=== PATIENT | male | born 1980 | race Caucasian/White ===

== ENCOUNTER 2021-07-08 09:41 | Emergency (ER) | payer OTHER ==
[~2021-07-08] VITALS: Ht 185.4 cm; Wt 68.9 kg
[2021-07-08] MEDS ORDERED: ONDANSETRON PF 4 MG/2 ML VIAL. IVP ONE (10:45)
[2021-07-08] MEDS ORDERED: MORPHINE SULFATE 4 MG/ML INJ. IVP ONE (10:45)
[2021-07-08] MEDS ORDERED: IV NORMAL SALINE 1000ML BAG 1,000 ML IV ONE (10:45)
[2021-07-08 10:54] LABS: BASO % 1 % (0-3); EOS % 0 % (0-3); HEMATOCRIT 47.8 % (39.0-53.0); HEMOGLOBIN 16.8 g/dL (13.0-17.5); LYMPH # 0.6 x10^3/uL (1.0-4.8); LYMPH % 11 % (24-48); MEAN CORPUSCULAR HEMOGLOBIN 31 pg (25-35); MEAN CORPUSCULAR HGB CONC 35 g/dL (31-37); MEAN CORPUSCULAR VOLUME 88 fL (79-100); MONO % 18 % (0-9); NEUT # 4.1 x10^3/uL (1.8-7.7); NEUT % 70 % (31-73); PLATELET COUNT 287 x10^3/uL (140-400); RED CELL DISTRIBUTION WIDTH 12.7 % (11.5-14.5); WHITE BLOOD COUNT 5.8 x10^3/uL (4.0-11.0)
[2021-07-08 10:59] LABS: CALCIUM 9.7 mg/dL (8.5-10.1); CREATININE 1.3 mg/dL (0.7-1.3); GFR 61.8; POTASSIUM 3.2 mmol/L (3.5-5.1)
--- NOTE | 2021-07-08 11:01 | PHYS DOC ---
Past Medical History Past Surgical History: No Surgical History (CHANTEL SHER CUSTOMER ENGAGEMENT MANAGER) Smoking Status: Former Smoker Alcohol Use: None (CHANTEL SHER CUSTOMER ENGAGEMENT MANAGER) General Adult EDM: Chief Complaint: ABDOMINAL PAIN HPI: HPI: Patient is a 40 year old 40-year-old male patient presenting to the ED today from [facility] with two guards complaining of 7 out of 10 sharp intermittent right lower quadrant abdominal pain with nausea vomiting and diarrhea, symptoms began on Tuesday last week. Patient denies any hematemesis or melena. States his pain is worse when he is lying down. Denies any fever. He states he lost 30 pounds since Tuesday without trying. (CHANTEL SHER CUSTOMER ENGAGEMENT MANAGER) Review of Systems: Review of Systems: Constitutional: Denies fever or chills. [] Eyes: Denies change in visual acuity. [] HENT: Denies nasal congestion or sore throat. [] Respiratory: Denies cough or shortness of breath. [] Cardiovascular: Denies chest pain or edema. [] GI: Reports right lower quadrant abdominal pain with nausea vomiting and diarrhea, denies any hematemesis or melena : Denies dysuria. [] Musculoskeletal: Denies back pain or joint pain. [] Integument: Denies rash. [] Neurologic: Denies headache, focal weakness or sensory changes. [] Psychiatric: Denies depression or anxiety. [] (CHANTEL SHER CUSTOMER ENGAGEMENT MANAGER) Heart Score: C/O Chest Pain: N/A Risk Factors: Risk Factors: DM, Current or recent (<one month) smoker, HTN, HLP, family history of CAD, obesity. Risk Scores: Score 0 - 3: 2.5% MACE over next 6 weeks - Discharge Home Score 4 - 6: 20.3% MACE over next 6 weeks - Admit for Clinical Observation Score 7 - 10: 72.7% MACE over next 6 weeks - Early Invasive Strategies (CHANTEL SHER CUSTOMER ENGAGEMENT MANAGER) Current Medications: Current Medications Medications (Trade) Dose Ordered Sig/Magalys Start Time Stop Time Status Last Admin Dose Admin Morphine Sulfate (Morphine Sulfate) 4 mg 1X ONCE 07/08/21 10:45 07/08/21 10:46 DC 07/08/21 10:45 4 MG Ondansetron HCl (Zofran) 4 mg 1X ONCE 07/08/21 10:45 07/08/21 10:46 DC 07/08/21 10:49 4 MG Sodium Chloride 1,000 ml @ 1,000 mls/hr 1X ONCE 07/08/21 10:45 07/08/21 11:44 07/08/21 10:45 1,000 MLS/HR (CHANTEL SHER Brie CUSTOMER ENGAGEMENT MANAGER) Allergies: Allergies: Allergies Coded Allergies Type Severity Reaction Last Updated Verified No Known Drug Allergies 07/08/21 No (NIKKYCHANTEL Brie CUSTOMER ENGAGEMENT MANAGER) Physical Exam: PE: Constitutional: Thin appearing patient, no acute distress, non-toxic appearance. [] HENT: Normocephalic, atraumatic, bilateral external ears normal, oropharynx moist, no oral exudates, nose normal. [] Eyes: PERRLA, EOMI, conjunctiva normal, no discharge. [] Neck: Normal range of motion, no tenderness, supple, no stridor. [] Cardiovascular:Heart rate regular rhythm, no murmur [] Lungs & Thorax: Bilateral breath sounds clear to auscultation [] Abdomen: Flat abdomen. Bowel sounds normal, soft, mild tenderness on palpation of the right lower quadrant with negative psoas sign, negative obturator sign, negative Rovsing sign, no right upper quadrant abdominal pain, no masses, no pulsatile masses. [] Skin: Warm, dry, no erythema, no rash. [] Back: No tenderness, no CVA tenderness. [] Extremities: No tenderness, no cyanosis, no clubbing, ROM intact, no edema. [] Neurologic: Alert and oriented X 3, normal motor function, normal sensory function, no focal deficits noted. [] Psychologic: Affect normal, judgement normal, mood normal. [] (HEATHERILEANABernardaCHANTEL CUSTOMER ENGAGEMENT MANAGER) Current Patient Data: Vital Signs: Vital Signs Date Time Temp Pulse Resp B/P (MAP) Pulse Ox O2 Delivery O2 Flow Rate FiO2 07/08/21 10:51 82 121/85 (97) 98 07/08/21 09:55 98.0 18 Room Air 98.0 (CHANTEL SHER CUSTOMER ENGAGEMENT MANAGER) EKG: EKG: [] (CHANTEL SHER CUSTOMER ENGAGEMENT MANAGER) Radiology/Procedures: Radiology/Procedures: []PROCEDURE: CT ABD PELV W/ IV CONTRST ONLY PQRS Compliance Statement: One or more of the following individualized dose reduction techniques were utilized for this examination: 1. Automated exposure control 2. Adjustment of the mA and/or kV according to patient size 3. Use of iterative reconstruction technique CT abdomen/pelvis with contrast 07/08/2021 11:13 AM INDICATION: Right lower quadrant abdominal pain COMPARISON: None available TECHNIQUE: Multiple axial CT images of the abdomen and pelvis were obtained after the intravenous administration of nonionic contrast. Coronal and sagittal reformats are provided. FINDINGS: 3 mm solid noncalcified pulmonary nodule identified in the left lower lobe (series 2, image 7). Heart size within normal limits. 4.5 mm hypoattenuating lesion within the medial segment left hepatic lobe (series 2, image 25) is too small to characterize, however statistically favored represent a simple cyst or hemangioma. Spleen, adrenal glands, pancreas and gallbladder are normal in appearance. The kidneys enhance symmetrically. There is no suspicious renal mass. There is no hydronephrosis. There are no suspected calculi within the kidneys, ureters or urinary bladder. Simple cyst in the superior pole left kidney measures 6 mm. Simple cyst in inferior pole left kidney measures 9 mm. Small and large bowel are normal in caliber. There is no evidence for bowel obstruction. There are no pericolonic inflammatory changes. A normal, nondilated appendix is visualized without adjacent inflammatory changes. There may be mild wall thickening involving the terminal ileum without adjacent inflammation. The abdominal aorta is normal in course and caliber. There are no pathologically enlarged lymph nodes in the abdomen and pelvis. There is no abdominal free fluid. There is no free intraperitoneal air. Urinary bladder is within normal limits given degree of distention. Prostate and seminal vesicles are normal. No suspicious osseous abnormality is identified. Inferior endplate Schmorl's node identified at L4 without significant height loss. IMPRESSION: No acute abnormality identified within the abdomen and pelvis. Specifically, appendix is normal. There may be mild wall thickening of the terminal ileum without significant adjacent inflammation. Correlate with any signs and symptoms of chronic terminal ileitis. 3 mm solid noncalcified pulmonary nodule in the left lower lobe. Fleischner guidelines for incidentally detected pulmonary nodules suggests no routine foll ow-up for low risk patients and optional CT at 12 months for high risk patients with solid noncalcified pulmonary nodules less than 6 mm in size. 4.5 mm hypoattenuating lesion within the medial segment left hepatic lobe is too small to characterize. This finding is favored to represent a cyst or hemangioma in the absence of underlying malignancy. Electronically signed by: Darion Sharp MD (07/08/2021 11:42 AM) [id number] DICTATED and SIGNED BY: DARION SHARP MD DATE: 07/08/21 [id number] (CHANTEL SHER APRN) Course & Med Decision Making: Course & Med Decision Making Pertinent Labs and Imaging studies reviewed. (See chart for details) [] This is a 40-year-old male patient presented to the ED today from [facility] complaining of right lower quadrant abdominal pain with nausea vomiting and diarrhea as well as 30 pound weight loss since Tuesday UA negative for infection, CBC with a normal WBC, normal hemoglobin and hematocrit, CMP with potassium of 3.2, patient was given oral potassium replacement. CT of the abdomen and pelvic was negative for appendicitis, noted for possible mild wall thickening of the terminal ileum without significant adjacent inflammation. Correlate with any signs and symptoms of chronic terminal ileitis. Patient denies chronic ileitis though states he tends to have diarrhea a month. Also noted for pulmonary nodule but no risk factors on this patient no follow-up is needed. Negative rapid Covid test Discharged to care home. Instructed to maintain good hand hygiene, push fluids. Follow-up with GI in 1 week if symptoms persist (CHANTEL SHER APRN) Course & Med Decision Making Laboratory Tests Test 07/08/21 10:03 07/08/21 10:09 07/08/21 10:53 Urine Collection Type Unknown Urine Color Radha Urine Clarity Clear Urine pH 6.0 (<5.0-8.0) Urine Specific [place] 1.025 (1.000-1.030) Urine Protein 30 mg/dL (NEG-TRACE) Urine Glucose (UA) Negative mg/dL (NEG) Urine Ketones (Stick) 15 mg/dL (NEG) Urine Blood Small (NEG) Urine Nitrite Negative (NEG) Urine Bilirubin Negative (NEG) Urine Urobilinogen Dipstick 0.2 mg/dL (0.2 mg/dL) Urine Leukocyte Esterase Negative (NEG) Urine RBC Rare /HPF (0-2) Urine WBC Occ /HPF (0-4) Urine Squamous Epithelial Cells Occ /LPF Urine Bacteria 0 /HPF (0-FEW) Urine Hyaline Casts Occasional /HPF Urine Mucus Slight /LPF Urine Opiates Screen Neg (NEG) Urine Methadone Screen Neg (NEG) Urine Barbiturates Neg (NEG) Urine Phencyclidine Screen Neg (NEG) Urine Amphetamine/Methamphetamine Neg (NEG) Urine Benzodiazepines Screen Neg (NEG) Urine Cocaine Screen Neg (NEG) Urine Cannabinoids Screen Neg (NEG) Urine Ethyl Alcohol Neg (NEG) White Blood Count 5.8 x10^3/uL (4.0-11.0) Red Blood Count 5.40 x10^6/uL (4.30-5.70) Hemoglobin 16.8 g/dL (13.0-17.5) Hematocrit 47.8 % (39.0-53.0) Mean Corpuscular Volume 88 fL (79-100) Mean Corpuscular Hemoglobin 31 pg (25-35) Mean Corpuscular Hemoglobin Concent 35 g/dL (31-37) Red Cell Distribution Width 12.7 % (11.5-14.5) Platelet Count 287 x10^3/uL (140-400) Neutrophils (%) (Auto) 70 % (31-73) Lymphocytes (%) (Auto) 11 % (24-48) Monocytes (%) (Auto) 18 % (0-9) Eosinophils (%) (Auto) 0 % (0-3) Basophils (%) (Auto) 1 % (0-3) Neutrophils # (Auto) 4.1 x10^3/uL (1.8-7.7) Lymphocytes # (Auto) 0.6 x10^3/uL (1.0-4.8) Monocytes # (Auto) 1.0 x10^3/uL (0.0-1.1) Eosinophils # (Auto) 0.0 x10^3/uL (0.0-0.7) Basophils # (Auto) 0.0 x10^3/uL (0.0-0.2) Sodium Level 140 mmol/L (136-145) Potassium Level 3.2 mmol/L (3.5-5.1) Chloride Level 99 mmol/L (98-107) Carbon Dioxide Level 29 mmol/L (21-32) Anion Gap 12 (6-14) Blood Urea Nitrogen 17 mg/dL (8-26) Creatinine 1.3 mg/dL (0.7-1.3) Estimated GFR (Cockcroft-Gault) 61.8 BUN/Creatinine Ratio 13 (6-20) Glucose Level 111 mg/dL (70-99) Calcium Level 9.7 mg/dL (8.5-10.1) Total Bilirubin 0.6 mg/dL (0.2-1.0) Aspartate Amino Transf (AST/SGOT) 19 U/L (15-37) Alanine Aminotransferase (ALT/SGPT) 17 U/L (16-63) Alkaline Phosphatase 59 U/L (46-116) Total Protein 8.2 g/dL (6.4-8.2) Albumin 4.1 g/dL (3.4-5.0) Albumin/Globulin Ratio 1.0 (1.0-1.7) Lipase 166 U/L (73-393) Ethyl Alcohol Level < 10 mg/dL (0-10) SARS-CoV-2 Antigen (Rapid) Negative (NEGATIVE) I have reviewed and was available for consultation in the emergency department for this patient that was seen by midlevel provider. Agree with plan above. Rajni Olmedo DO (RAJNI OLMEDO DO) Oleksandr Disclaimer: Oleksandr Disclaimer: This electronic medical record was generated, in whole or in part, using a voice recognition dictation system. (CHANTEL SHER APRN) Departure Departure Impression: Primary Impression: Ileitis, terminal Qualified Codes: K50.019 - Crohn's disease of small intestine with unspecified complications Additional Impression: Hypokalemia Disposition: HOME / SELF CARE / HOMELESS Condition: STABLE Referrals: DORCAS MOONEY MD follow up in one week Patient Instructions: Viral Gastroenteritis, [id number] Additional Instructions: You were evaluated in the emergency room and noted to have a possible viral infection. Your WBCs were normal, your hemoglobin and hematocrit was normal. Your CT of the abdomen and pelvic was noted for possible chronic ileitis. We encourage you to push fluids. Maintain good hand hygiene. Follow-up with your own doctor in 1 to [address]. Your potassium was 3.2, this is slightly low. Increase your dietary potassium intake. CHANTEL SHER APRN Jul 08, 2021 11:01 RAJNI OLMEDO DO Jul 08, 2021 15:24
[2021-07-08 11:05] LABS: ALBUMIN 4.1 g/dL (3.4-5.0); TOTAL BILIRUBIN 0.6 mg/dL (0.2-1.0); TOTAL PROTEIN 8.2 g/dL (6.4-8.2)
[2021-07-08 11:09] LABS: BILIRUBIN,URINE NEGATIVE (NEG); CLARITY,URINE CLEAR; COLOR,URINE AMBER; NITRITE,URINE NEGATIVE (NEG); PROTEIN,URINE 30 mg/dL (NEG-TRACE); UROBILINOGEN,URINE 0.2 mg/dL (0.2 mg/dL)
[2021-07-08 11:15] LABS: BARBITURATES NEG (NEG); BENZODIAZEPINES NEG (NEG); CANNABINOIDS NEG (NEG); COCAINE NEG (NEG); METHADONE NEG (NEG); OPIATES NEG (NEG); PHENCYCLIDINE NEG (NEG)
[2021-07-08] MEDS ORDERED: IOHEXOL 300 MG/ML 100ML VIAL. IV ONE (11:15)
[2021-07-08 11:16] LABS: AMPHETAMINE/METHAMPHETAMINE NEG (NEG)
[2021-07-08 11:23] LABS: RBC,URINE RARE /HPF (0-2)
[2021-07-08 11:24] LABS: BACTERIA,URINE 0 /HPF (0-FEW); HYALINE CASTS, URINE OCCASIONAL /HPF; WBC,URINE OCC /HPF (0-4)
[2021-07-08] MEDS ORDERED: CONTRAST GIVEN. MC PRN (11:30)
--- NOTE | 2021-07-08 11:45 | RAD ---
PQRS Compliance Statement: One or more of the following individualized dose reduction techniques were utilized for this examinat ion: 1. Automated exposure control 2. Adjustment of the mA and/or kV according to patient size 3. Use of iterative reconstruction technique CT abdomen/pelvis with contrast 07/08/2021 11:13 AM INDICATION: Right lower quadrant abdominal pain COMPARISON: None available TECHNIQUE: Multiple axial CT images of the abdomen and pelvis were obtained after the intravenous adm inistration of nonionic contrast. Coronal and sagittal reformats are provided. FINDINGS: 3 mm solid noncalcified pulmonary nodule identified in the left lower lobe (series 2, image 7). Heart size within normal limits. 4.5 mm hypoattenuating lesion within the medial segment left hepatic lobe (series 2, image 25) is too small to characterize, however statistically favored represent a simple cyst or hemangioma. Spleen, adrenal glands, pancreas and gallbladder are normal in appearance. The kidneys enhance symmetrically. There is no suspicious renal mass. There is no hydronephrosis. The re are no suspected calculi within the kidneys, ureters or urinary bladder. Simple cyst in the superi or pole left kidney measures 6 mm. Simple cyst in inferior pole left kidney measures 9 mm. Small and large bowel are normal in caliber. There is no evidence for bowel obstruction. There are no pericolonic inflammatory changes. A normal, nondilated appendix is visualized without adjacent infla mmatory changes. There may be mild wall thickening involving the terminal ileum without adjacent infl ammation. The abdominal aorta is normal in course and caliber. There are no pathologically enlarged lymph nodes in the abdomen and pelvis. There is no abdominal free fluid. There is no free intraperitoneal air. Urinary bladder is within normal limits given degree of distention. Prostate and seminal vesicles are normal. No suspicious osseous abnormality is identified. Inferior endplate Schmorl's node identified at L4 without significant height loss. IMPRESSION: No acute abnormality identified within the abdomen and pelvis. Specifically, appendix is normal. Ther e may be mild wall thickening of the terminal ileum without significant adjacent inflammation. Correl ate with any signs and symptoms of chronic terminal ileitis. 3 mm solid noncalcified pulmonary nodule in the left lower lobe. Fleischner guidelines for incidental ly detected pulmonary nodules suggests no routine follow-up for low risk patients and optional CT at 12 months for high risk patients with solid noncalcified pulmonary nodules less than 6 mm in size. 4.5 mm hypoattenuating lesion within the medial segment left hepatic lobe is too small to characteriz e. This finding is favored to represent a cyst or hemangioma in the absence of underlying malignancy. Electronically signed by: Sri Avilez MD (07/08/2021 11:42 AM) [id number]
[2021-07-08] MEDS ORDERED: POTASSIUM CHLORIDE 20 MEQ TABLET.ER. PO ONE (13:45)
[2021-07-08 13:50] VITALS: BP 125/84
== END 2021-07-08 13:50 | disposition home or self-care (01) ==
LOC: ER 09:41 → EEVIPCON 09:41 → ER 13:50
DX: K50.019 Crohn's disease of small intestine with unspecified complications (principal); Z20.822 Contact with and (suspected) exposure to COVID-19; E87.6 Hypokalemia; Z87.891 Personal history of nicotine dependence
CPT/HCPCS: 74177; 80053; 80307; 81001; 83690; 85025; 87426; 87491; 87493; 87591; 96361; 96374; 96375; 99285; G0480; J2270; J2405; J7030; U0003; U0005